=== PATIENT | male | born 1985 | race Caucasian/White ===

== ENCOUNTER 2016-03-25 02:40 | Inpatient (IN) | payer BC ==
[2016-03-25] VITALS (7 sets, daily range): BP systolic 135–176; BP diastolic 81–88
[~2016-03-25] VITALS: Ht 190.5 cm; Wt 146.0 kg
[2016-03-25 03:19] LABS: BASO % 0.4 % (0.0-1.0); EOS # 0.2 K/mm3 (0.0-0.50); LARGE UNSTAINED CELL # 0.1 K/mm3 (0.0-0.4); LARGE UNSTAINED CELL % 0.8 % (0.0-4.0); LYMPH # 2.1 K/mm3 (1.5-4.5); LYMPH % 16.4 % (24.0-44.0); MEAN CORPUSCULAR HEMOGLOBIN 30.7 pg (27.0-33.0); MEAN CORPUSCULAR HGB CONC 35.1 g/dl (32.0-36.5); MEAN CORPUSCULAR VOLUME 87.3 fl (80.0-96.0); MONO # 0.4 K/mm3 (0.0-0.8); MONO % 3.4 % (0.0-5.0); NEUTROPHILS # 9.2 K/mm3 (1.8-7.7); PLATELET COUNT, AUTOMATED 386 k/mm3 (150-450); RED CELL DISTRIBUTION WIDTH 12.6 % (11.5-14.5)
[2016-03-25 03:47] LABS: ALBUMIN 4.5 GM/DL (3.2-5.2); ALBUMIN/GLOBULIN RATIO 1.25 (1.00-1.93); ALKALINE PHOSPHATASE 55 U/L (45-117); ALT/SGPT 60 U/L (12-78); AMYLASE 52 U/L (25-115); ANION GAP 11 MEQ/L (8-16); AST/SGOT 26 U/L (15-37); BILIRUBIN,DIRECT 0.1 MG/DL (0.0-0.2); BILIRUBIN,TOTAL 0.4 MG/DL (0.2-1.0); BLOOD UREA NITROGEN 18 MG/DL (7-18); CALCIUM LEVEL 9.3 MG/DL (8.5-10.1); CARBON DIOXIDE LEVEL 24 MEQ/L (21-32); CHLORIDE LEVEL 103 MEQ/L (98-107); CREATININE FOR GFR 1.17 MG/DL (0.70-1.30); GLOMERULAR FILTRATION RATE > 60.0 (>60); GLUCOSE, FASTING 133 MG/DL (70-105); POTASSIUM SERUM 3.7 MEQ/L (3.5-5.1); SODIUM LEVEL 138 MEQ/L (136-145); TOTAL PROTEIN 8.1 GM/DL (6.4-8.2)
[2016-03-25] MEDS ORDERED: ISOVUE-370 76% 100ML VIAL (Q9967) As Ordered ONE (04:51)
--- NOTE | 2016-03-25 05:00 | REPUSA ---
CLINICAL HISTORY: Elevated liver enzymes. TECHNIQUE: Realtime sonographic images were obtained in multiple projections. COMMENTS: Increased hepatic echogenicity suggestive of fatty infiltration. Distended gallbladder. Stones and sludge. One of the stones is impacted in the neck of the gallbladder. Normal gallbladder wall thickness measuring 2.1 mm. Positive sonographic Perry. Nondilated common bile duct measuring 5.2 mm. Unremarkable right kidney. IMPRESSION: Fatty liver. Cholelithiasis. One of the stones is impacted at the neck of the distended gallbladder. Posterior sonographic Perry. Suspected developing changes of acute cholecystitis. This needs a surgical consultation. Thank you for your kind referral of this patient.
--- NOTE | 2016-03-25 06:00 | REPUSA ---
CLINICAL HISTORY: Abdominal pain. TECHNIQUE: Multiple axial, sagittal and coronal CT images were obtained through the abdomen and pelvi s after administration of intravenous contrast material. COMMENTS: The liver is mildly enlarged with decreased attenuation without mass or defect. There is no intra or extrahepatic biliary ductal dilatation. The spleen is normal. The gallbladder is mildly thickened. Th ere is mild pericholecystic fat stranding and thickening. The pancreas is of normal contour and atten uation characteristics. There is no evidence of adrenal mass. Both kidneys demonstrate prompt and equal nephrograms. The kidneys are normal in size, shape and conf iguration. There is no evidence of renal or ureteral mass. No renal or ureteral calculi are identifie d. There is no hydroureter or hydronephrosis. No evidence for appendicitis. There is no bowel wall thickening. No evidence for small or large lilian l obstruction. There is no evidence of abdominal ascites or lymphadenopathy. There is no evidence of intrinsic or extrinsic bladder mass. There is no pelvic ascites or lymphadeno mazin. Images of the lung bases show no evidence of pleural or parenchymal mass. There are no pleural effusi ons. The bony structures are free of lytic or blastic lesions. Multilevel degenerative changes are seen in volving the thoracolumbar spine. Scattered calcifications are seen involving the aorta and major bran ches compatible with atherosclerosis. IMPRESSION: Suspected mild changes of acute cholecystitis. This needs a surgical consultation. Mild hepatomegaly with fatty liver infiltration. Thank you for your kind referral of this patient.
[2016-03-25] MEDS ORDERED: ACETAMINOPHEN TAB 650MG DOSE (2X325MG) PO PRN (08:00)
[2016-03-25] MEDS ORDERED: KETOROLAC 30 MG/ML VIAL (J1885) IV PRN (08:00)
[2016-03-25] MEDS ORDERED: NORCO, ANEXSIA 5/325MG TABLET (HYDROcodone/ACETAMINOPHEN) PO PRN (08:00)
[2016-03-25] MEDS ORDERED: MORPHINE 2 MG/ML 1ML SYRINGE IV PRN (08:00)
--- NOTE | 2016-03-25 08:20 | EDDOCDS ---
Physician Documentation [facility] Name: Magdi Perez Age: 30 yrs Sex: Male : 1985 Arrival Date: 03/25/2016 Time: 02:40 Bed 5 Private MD: Disposition: 03/25/16 06:14 Hospitalization ordered by Aleksandr Hanson for Inpatient Admission. Preliminary diagnosis is Acute cholecystitis. - Bed requested for 4 [place]. - Status is Inpatient Admission. jmk - Condition is Stable. - Problem is new. - Symptoms are unchanged. Historical: - Allergies: No known drug Allergies; - Home Meds: 1. none - PMHx: none; - PSHx: Appendectomy; - Social history: Smoking status: Patient states was never smoker of tobacco. No barriers to communication noted, The patient speaks fluent Afghan, Speaks appropriately for age. - Family history: Not pertinent. - : The pt / caregiver states he / she is not on anticoagulants. Home medication list is obtained from the patient. - Exposure Risk Screening:: None identified. Vital Signs: 03/25 02:45 BP 160 / 98; Pulse 59; Resp 18; Temp 96.2(O); Pulse Ox 97% on R/A; Weight 145.15 kg / kmg1 320 lbs (M); Height 6 ft. 3 in. (190.50 cm) (R); Pain 10/10; 06:35 BP 120 / 66; Pulse 81; Resp 18; Temp 97.7(TE); Pulse Ox 98% on R/A; Pain 5/10; wisam 08:18 BP 130 / 67; Pulse 60; Resp 16; Temp 98.1; jmk 02:45 Body Mass Index 40.00 (145.15 kg, 190.50 cm) kmg1 MDM: 03:04 Undress patient appropriately for examination ordered. kmg1 03:04 IV Saline Lock ordered. kmg1 03:05 Amylase Ordered. EDMS 03:05 Basic Metabolic Profile Ordered. EDMS 03:05 CBC with Diff Ordered. EDMS 03:05 Lipase Ordered. EDMS 03:05 Liver Profile Ordered. EDMS 03:05 NOTHING BY MOUTH+DIET ordered. EDMS 03:58 Financial registration complete. [facility] 04:02 Basic Metabolic Profile Reviewed. cs11 04:02 CBC with Diff Reviewed. cs11 04:02 Amylase Reviewed. cs11 04:02 Lipase Reviewed. cs11 04:02 Liver Profile Reviewed. cs11 04:06 Ultrasound Abd Limited Ordered. EDMS 04:08 [facility] Payment Agreement was scanned into [employer] and attached to record. [facility] 04:38 CT ABD & PELVIS: IV Contrast Only Ordered. EDMS 06:04 Ultrasound Abd Limited Reviewed. cs11 06:08 BED REQUEST+ADM ordered. EDMS 06:17 Admission Orders was scanned into [employer] and attached to record. ml3 08:01 Admission / Observation Status ordered. EDMS 08:01 NPO DIET ordered. EDMS 08:17 LR Solution 1000 ml IV at 125 mL/hr continuous ordered. jmk Administered Medications: 08:17 Drug: LR 1000 ml [lactated ringers intravenous solution] Route: IV; Rate: 125 mL/hr; elizabethk Site: left antecubital; Signatures: Dispatcher [employer] EDID Cristine Hagan, RN RN kmg1 Ciro BraggRN RN elizabethk Tameka Mathis, Tank Crewmember Unit ml3 Bud Piña, DO DO [facility] Kelly Rush [facility] Karla Williamson, RN RN lmg The chart was reviewed and I authenticate all verbal orders and agree with the evaluation and treatment provided.Attachments: 04:08 [facility] Payment Agreement [facility] 06:17 Admission Orders ml3 MTDD
--- NOTE | 2016-03-25 08:20 | EDDOCDS ---
Nurse's Notes [facility] Name: Magdi Perez Age: 30 yrs Sex: Male : 1985 Arrival Date: 03/25/2016 Time: 02:40 Bed 5 Private MD: Diagnosis: Acute cholecystitis Presentation: 03/25 02:42 Presenting complaint: Patient states: Severe right upper abdominal pain began at 2330. kmg1 Vomiting. Risk factors: the patient reports not having a history of previous torsion. Adult Sepsis Screening:. Suicide/Homicide risk assessment- the patient denies having any suicidal and/or homicidal ideations and does not present with any other emotional, behavioral or mental health complaints. Status: Patient is not a vending machine servicer or dependent. Transition of care: patient was not received from another setting of care. 02:42 Acuity: LEX Level 3 kmg1 02:42 Method Of Arrival: Walkin/Carried/Asstd kmg1 05:03 Adult Sepsis Screening: The patient does not have new or worsening altered mentation. js15 Patient's respiratory rate is less than 22. Systolic blood pressure is greater than 100. Patient has a qSOFA score of 0- Negative Sepsis Screen. Triage Assessment: 02:45 General: Appears uncomfortable, Behavior is appropriate for age, cooperative, restless. kmg1 Pain: Location: right upper quadrant Pain currently is 10 out of 10 on a pain scale. Quality of pain is described as aching, sharp, Pain began suddenly 3 hours ago. HIV screening NA for this visit Offered previously. GI: Reports upper abd pain, nausea, vomiting. Historical: - Allergies: No known drug Allergies; - Home Meds: 1. none - PMHx: none; - PSHx: Appendectomy; - Social history: Smoking status: Patient states was never smoker of tobacco. No barriers to communication noted, The patient speaks fluent Italian, Speaks appropriately for age. - Family history: Not pertinent. - : The pt / caregiver states he / she is not on anticoagulants. Home medication list is obtained from the patient. - Exposure Risk Screening:: None identified. Screenin:04 Screening information is obtained from the patient. Fall risk: No risks identified. js15 Assistance ADL's: requires no assistance with activities of daily living. Abuse/DV Screen: The patient / caregiver reports he/she is: not in a situation that causes fear, pain or injury. Nutritional screening: No deficits noted. Advance Directives: There is no active DNR order. home support is adequate. Assessment: 04:00 General: Appears in no apparent distress, uncomfortable, Behavior is appropriate for js15 age, cooperative. Pain: Location: abdomen and right upper quadrant Pain currently is 7 out of 10 on a pain scale. Quality of pain is described as aching. Neurological: Level of Consciousness is awake, alert, obeys commands, Oriented to person, place, time. Respiratory: Airway is patent Respiratory effort is even, unlabored, Respiratory pattern is regular, symmetrical, Breath sounds are clear bilaterally. GI: Abdomen is non- distended Bowel sounds present X 4 quads. Abd is soft and non tender X 4 quads. Derm: Skin is pink, warm & dry. 05:04 Reassessment: Patient appears in no apparent distress at this time. Pt back from CT; js15 respirations even and unlabored; skin pink, warm, dry; resting comfortably on stretcher with significant other at bedside and lights dimmed. 06:06 Reassessment: Patient appears in no apparent distress at this time. Pt resting on js15 stretcher with eyes closed, lights off, appears to be sleeping; respirations even and unlabored; skin pink, warm, dry. 06:32 General: Appears in no apparent distress, resting on stretcher with eyes closed. js15 Respiratory: Airway is patent Respiratory effort is even, unlabored, Respiratory pattern is regular, symmetrical. Derm: Skin is pink, warm & dry. 08:12 General: Appears denies pain. Obese abdomen that is non distended with bowel sounds jmk present x 4. pain not reproduced with palpation of abdomen, but indicates discomfort to right upper abdomen when present. SL intact. moist pin k oral mucosa. Vital Signs: 02:45 BP 160 / 98; Pulse 59; Resp 18; Temp 96.2(O); Pulse Ox 97% on R/A; Weight 145.15 kg kmg1 (M); Height 6 ft. 3 in. (190.50 cm) (R); Pain 10/10; 06:35 BP 120 / 66; Pulse 81; Resp 18; Temp 97.7(TE); Pulse Ox 98% on R/A; Pain 5/10; wisam 08:18 BP 130 / 67; Pulse 60; Resp 16; Temp 98.1; jmk 02:45 Body Mass Index 40.00 (145.15 kg, 190.50 cm) [facility] Vitals: 02:45 Log In Time: March 25, 2016 at 02:40. [facility] ED Course: 02:41 Patient visited by Santi Aburto Reg. pm4 02:41 Patient moved to Waiting pm4 02:44 Triage Initiated kmg1 03:05 Patient moved to 5 ml3 03:10 The patient / caregiver is instructed regarding the plan of care and ED course. kmg1 03:10 Amylase Sent. kmg1 03:10 Basic Metabolic Profile Sent. kmg1 03:10 CBC with Diff Sent. kmg1 03:10 Lipase Sent. kmg1 03:10 Liver Profile Sent. kmg1 03:10 Inserted saline lock: 20 gauge in left antecubital area. Labs drawn. (by ED staff). kmg1 Sent per order to lab. 03:46 Bud Piña DO is Attending Physician. cs11 03:46 Patient visited by Bud Piña DO. cs11 04:08 Patient name changed from Magdi\S\J\S\Cavellier\S\ to Magdi\S\Jerry\S\Cavellier. EDMS 04:08 [facility] Payment Agreement was scanned into [employer] and attached to record. [facility] 04:48 Patient visited by Natividad Armando RN. js15 05:03 Ultrasound Abd Limited Returned. EDMS 06:05 Patient visited by Natividad Armando RN. js15 06:09 CT ABD & PELVIS: IV Contrast Only Returned. EDMS 06:13 Aleksandr Hanson DO is Hospitalizing Provider. cs11 06:17 Admission Orders was scanned into [employer] and attached to record. ml3 06:35 Patient visited by Angie Vela PCA. wisam 07:59 Patient visited by Angel Mariee. jml1 07:59 Verbal reassurance given. jml1 Administered Medications: 08:17 Drug: LR 1000 ml [lactated ringers intravenous solution] Route: IV; Rate: 125 mL/hr; elizabethk Site: left antecubital; Order Results: Lab Order: Amylase; SPEC'M 03/25/16 03:06 Test: AMYLASE; Value: 52; Range: 25-115; Units: U/L; Status: F Lab Order: Basic Metabolic Profile; SPEC03/25/16 03:06 Test: GLUCOSE, FASTING; Value: 133; Range: 70-105; Abnormal: Above high normal; Units: MG/DL; Status: F Test: BLOOD UREA NITROGEN; Value: 18; Range: 7-18; Units: MG/DL; Status: F Test: CREATININE FOR GFR; Value: 1.17; Range: 0.70-1.30; Units: MG/DL; Status: F Test: GLOMERULAR FILTRATION RATE; Value: > 60.0; Range: >60; Status: F Test: SODIUM LEVEL; Value: 138; Range: 136-145; Units: MEQ/L; Status: F Test: POTASSIUM SERUM; Value: 3.7; Range: 3.5-5.1; Units: MEQ/L; Status: F Test: CHLORIDE LEVEL; Value: 103; Range: 98-107; Units: MEQ/L; Status: F Test: CARBON DIOXIDE LEVEL; Value: 24; Range: 21-32; Units: MEQ/L; Status: F Test: ANION GAP; Value: 11; Range: 8-16; Units: MEQ/L; Status: F Test: CALCIUM LEVEL; Value: 9.3; Range: 8.5-10.1; Units: MG/DL; Status: F Test Note: ; Units are mL/min/1.73 m2 Chronic Kidney Disease Staging per NKF: Stage I & II GFR >=60 Normal to Mildly Decreased Stage III GFR 30-59 Moderately Decreased Stage IV GFR 15-29 Severely Decreased Stage V GFR <15 Very Little GFR Left ESRD GFR <15 on [facility] Lab Order: CBC with Diff; SPEC03/25/16 03:06 Test: WHITE BLOOD COUNT; Value: 12.0; Range: 4.0-10.0; Abnormal: Above high normal; Units: K/mm3; Status: F Test: RED BLOOD COUNT; Value: 5.15; Range: 4.30-6.10; Units: M/mm3; Status: F Test: HEMOGLOBIN; Value: 15.8; Range: 14.0-18.0; Units: g/dl; Status: F Test: HEMATOCRIT; Value: 44.9; Range: 42.0-52.0; Units: %; Status: F Test: MEAN CORPUSCULAR VOLUME; Value: 87.3; Range: 80.0-96.0; Units: fl; Status: F Test: MEAN CORPUSCULAR HEMOGLOBIN; Value: 30.7; Range: 27.0-33.0; Units: pg; Status: F Test: MEAN CORPUSCULAR HGB CONC; Value: 35.1; Range: 32.0-36.5; Units: g/dl; Status: F Test: RED CELL DISTRIBUTION WIDTH; Value: 12.6; Range: 11.5-14.5; Units: %; Status: F Test: PLATELET COUNT, AUTOMATED; Value: 386; Range: 150-450; Units: k/mm3; Status: F Test: NEUTROPHILS %; Value: 77.0; Range: 36.0-66.0; Abnormal: Above high normal; Units: %; Status: F Test: LYMPH %; Value: 16.4; Range: 24.0-44.0; Abnormal: Below low normal; Units: %; Status: F Test: MONO %; Value: 3.4; Range: 0.0-5.0; Units: %; Status: F Test: EOS %; Value: 2.0; Range: 0.0-3.0; Units: %; Status: F Test: BASO %; Value: 0.4; Range: 0.0-1.0; Units: %; Status: F Test: LARGE UNSTAINED CELL %; Value: 0.8; Range: 0.0-4.0; Units: %; Status: F Test: NEUTROPHILS #; Value: 9.2; Range: 1.8-7.7; Abnormal: Above high normal; Units: K/mm3; Status: F Test: LYMPH #; Value: 2.1; Range: 1.5-4.5; Units: K/mm3; Status: F Test: MONO #; Value: 0.4; Range: 0.0-0.8; Units: K/mm3; Status: F Test: EOS #; Value: 0.2; Range: 0.0-0.50; Units: K/mm3; Status: F Test: BASO #; Value: 0.0; Range: 0.0-0.2; Units: K/mm3; Status: F Test: LARGE UNSTAINED CELL #; Value: 0.1; Range: 0.0-0.4; Units: K/mm3; Status: F Lab Order: Lipase; SPEC'M 03/25/16 03:06 Test: LIPASE; Value: 355; Range: 73-393; Units: U/L; Status: F Lab Order: Liver Profile; SPEC'M 03/25/16 03:06 Test: AST/SGOT; Value: 26; Range: 15-37; Units: U/L; Status: F Test: ALT/SGPT; Value: 60; Range: 12-78; Units: U/L; Status: F Test: ALKALINE PHOSPHATASE; Value: 55; Range: 45-117; Units: U/L; Status: F Test: BILIRUBIN,TOTAL; Value: 0.4; Range: 0.2-1.0; Units: MG/DL; Status: F Test: BILIRUBIN,DIRECT; Value: 0.1; Range: 0.0-0.2; Units: MG/DL; Status: F Test: TOTAL PROTEIN; Value: 8.1; Range: 6.4-8.2; Units: GM/DL; Status: F Test: ALBUMIN; Value: 4.5; Range: 3.2-5.2; Units: GM/DL; Status: F Test: ALBUMIN/GLOBULIN RATIO; Value: 1.25; Range: 1.00-1.93; Status: F Radiology Order: Ultrasound Abd Limited Test: Ultrasound Abd Limited REASON FOR EXAMINATION: Biliary Colic; ; CLINICAL HISTORY: Elevated liver enzymes.; TECHNIQUE: Realtime sonographic images were obtained in multiple projections.; COMMENTS:; Increased hepatic echogenicity suggestive of fatty infiltration.; Distended gallbladder.; Stones and sludge. One of the stones is impacted in the neck of the gallbladder.; Normal gallbladder wall thickness measuring 2.1 mm.; Positive sonographic Perry.; Nondilated common bile duct measuring 5.2 mm.; Unremarkable right kidney.; IMPRESSION:; Fatty liver.; Cholelithiasis.; One of the stones is impacted at the neck of the distended gallbladder.; Posterior sonographic Perry.; Suspected developing changes of acute cholecystitis. This needs a surgical consultation.; Thank you for your kind referral of this patient.; ; Radiology Order: CT ABD & PELVIS: IV Contrast Only Test: CT ABD & PELVIS: IV Contrast Only REASON FOR EXAMINATION: Biliary Colic; ; CLINICAL HISTORY: Abdominal pain.; TECHNIQUE: Multiple axial, sagittal and coronal CT images were obtained through the abdomen and pelvi; s after administration of intravenous contrast material.; COMMENTS:; The liver is mildly enlarged with decreased attenuation without mass or defect. There is no intra or; extrahepatic biliary ductal dilatation. The spleen is normal. The gallbladder is mildly thickened. Th; ere is mild pericholecystic fat stranding and thickening. The pancreas is of normal contour and atten; uation characteristics. There is no evidence of adrenal mass.; Both kidneys demonstrate prompt and equal nephrograms. The kidneys are normal in size, shape and conf; iguration. There is no evidence of renal or ureteral mass. No renal or ureteral calculi are identifie; d. There is no hydroureter or hydronephrosis.; No evidence for appendicitis. There is no bowel wall thickening. No evidence for small or large lilian; l obstruction. There is no evidence of abdominal ascites or lymphadenopathy.; There is no evidence of intrinsic or extrinsic bladder mass. There is no pelvic ascites or lymphadeno; mazin.; Images of the lung bases show no evidence of pleural or parenchymal mass. There are no pleural effusi; ons.; The bony structures are free of lytic or blastic lesions. Multilevel degenerative changes are seen in; volving the thoracolumbar spine. Scattered calcifications are seen involving the aorta and major bran; ches compatible with atherosclerosis.; IMPRESSION:; Suspected mild changes of acute cholecystitis. This needs a surgical consultation.; Mild hepatomegaly with fatty liver infiltration.; Thank you for your kind referral of this patient.; ; Outcome: 06:14 Decision to Hospitalize by Provider. cs11 08:18 Discharge Assessment: Patient awake, alert and oriented x 3. No cognitive and/or jmk functional deficits noted. Patient verbalized understanding of disposition instructions. patient administered narcotics - no. The following High Risk Discharge criteria are identified: None. Admitted to Med/Surg accompanied by tech, via stretcher, with chart. Condition: good. CT Study completed. Ultrasound Study completed. Property :Personal belongings accompany Pt. 08:19 Patient left the ED. nate Signatures: Dispatcher [employer] EDMS Cristine Hagan, RN RN kmg1 Ciro Bragg,RN RN elizabethk Del, Tameka, Slot Floor Supervisor Unit ml3 Angie Vela, SILVERING DEPARTMENT SUPERVISOR SILVERING DEPARTMENT SUPERVISOR wisam Angel Mariee jml1 Bud Piña, DO DO cs11 Kelly Rush Julia,RN RN js15 Santi Aburto, Reg Reg pm4 MTDD
[2016-03-25] MEDS: LR 1,000 ML IV SCH ×3 (10:00→21:55)
[2016-03-25] MEDS: metroNIDAZOLE 500 MG in APPROPRIATE DILUENT 1 EA IV SCH ×3 (10:00→21:52)
[2016-03-25] MEDS: CIPROFLOXACIN 400 MG in APPROPRIATE DILUENT 1 EA IV SCH ×2 (10:01→20:40)
[2016-03-25] MEDS: SENOKOT S TAB PO SCH ×2 (10:01→20:41)
[2016-03-25] MEDS ORDERED: BUPIVACAINE/EPIN 0.25% 30 ML VIAL As Ordered ONE (10:42)
[2016-03-25] MEDS ORDERED: ROCURONIUM BROMIDE 50 MG/5 ML VIAL As Ordered ONE ×2 (11:19→11:33)
[2016-03-25] MEDS ORDERED: fentaNYL 250 MCG/5 ML INJECTION (J3010) As Ordered ONE (11:19)
[2016-03-25] MEDS ORDERED: MIDAZOLAM INJ 2 MG/2 ML VIAL (J2250) As Ordered ONE (11:19)
[2016-03-25] MEDS ORDERED: LIDOCAINE 2% INJ 100 MG/5 ML SDV (FOR ANES.) As Ordered ONE (11:19)
[2016-03-25] MEDS ORDERED: PROPOFOL 200 MG/20 ML VIAL As Ordered ONE (11:19)
[2016-03-25] MEDS ORDERED: KETOROLAC 60 MG/2 ML VIAL (J1885) As Ordered ONE (11:26)
[2016-03-25] MEDS ORDERED: ONDANSETRON 4MG/2ML VIAL (J2405) As Ordered ONE (11:26)
[2016-03-25] MEDS ORDERED: NEOSTIGMINE 1MG/ML 5 ML SYRINGE (J2710) As Ordered ONE (11:26)
[2016-03-25] MEDS ORDERED: GLYCOPYRROLATE INJ 0.2 MG/ML 2 ML VIAL As Ordered ONE ×2 (11:26→12:08)
[2016-03-25] MEDS ORDERED: BUPIVACAINE/EPIN 0.25% 30 ML VIAL XX ONE (11:37)
[2016-03-25] MEDS ORDERED: fentaNYL 100 MCG/2 ML INJECTION (J3010) As Ordered ONE (11:48)
[2016-03-25] MEDS ORDERED: HYDROmorphone HCL 2 MG/ML 1ML VIAL (J1170) As Ordered ONE (12:22)
[2016-03-25] MEDS ORDERED: NORCOTAB PO (12:34)
[2016-03-25] MEDS ORDERED: SENN1TAB2 PO (12:34)
[2016-03-25] MEDS ORDERED: fentaNYL 100 MCG/2 ML INJECTION (J3010) IV PRN (12:45)
[2016-03-25] MEDS ORDERED: LR 1,000 ML IV SCH (12:45)
[2016-03-25] MEDS ORDERED: HYDROmorphone HCL 1 MG/ML SYRINGE (J1170) IV PRN (12:45)
[2016-03-25] MEDS ORDERED: PERCOCET 5MG/325MG TAB PO PRN (12:45)
[2016-03-25] MEDS ORDERED: ONDANSETRON 4MG/2ML VIAL (J2405) IV PRN (12:45)
--- NOTE | 2016-03-25 13:07 | HPE ---
DATE OF ADMISSION: 03/25/2016 CHIEF COMPLAINT: Right upper quadrant pain. HISTORY OF PRESENT ILLNESS: The patient 30-year-old male who has had intermittent right upper quadrant abdominal pain for over a year now. He was originally diagnosed with stones about 14 to 15 months ago. He never saw a surgeon to have it evaluated. Anywhere from a couple of times a week to once every couple months he has been having this right upper quadrant pain. He was started on Bentyl outpatient without any improvement. In the past few days, it has been getting more persistent, more pain. He came into the emergency room last evening and was diagnosed with acute cholecystitis with a thickened gallbladder wall and pericholecystic fluid, as well as an elevated white count. He denies any nausea or vomiting. No fever sweats or chills. No problems with diarrhea or constipation but this right upper quadrant pain has been fairly persistent. PAST MEDICAL HISTORY: Negative. PAST SURGICAL HISTORY: Appendix. ALLERGIES: None. HOME MEDICATIONS: None. SOCIAL HISTORY: Denies drug, alcohol, tobacco abuse. FAMILY HISTORY: Noncontributory. REVIEW OF SYSTEMS: Pertinent positives and negatives as stated in the history of present illness. PHYSICAL EXAMINATION GENERAL: Alert and oriented times three times three. No acute distress. VITAL SIGNS: Stable, afebrile. HEENT: Pupils equal round reactive to light and accommodation. HEART: S1, S2. Regular rate and rhythm. LUNGS: Clear to auscultation bilaterally. ABDOMEN: Soft. Tender to palpation in the right upper quadrant. No rebounding, guarding or rigidity. Bowel sounds positive. EXTREMITIES: No clubbing, cyanosis or edema. LABORATORY DATA: White count 12, hemoglobin 15.8, total bilirubin 0.4, direct bilirubin 0.1, AST 26, ALT 60, alkaline phosphatase 55, lipase 355. IMAGING STUDIES: Ultrasound of the abdomen shows cholelithiasis with a stone impacted in neck of the distended gallbladder. Sonographic Perry sign is positive. Suspected developing changes of acute cholecystitis. ASSESSMENT AND PLAN: The patient is a 30-year-old male with acute cholecystitis. RECOMMENDATIONS: Proceed with laparoscopic, possible open cholecystectomy. The risks and benefits of the procedure, not limited to, but including bleeding, infection, hernia formation, damage to surrounding structures, need further surgery were discussed in detail with the patient. Informed consent was obtained and procedure is planned for this morning. After surgery, as long as he is feeling okay, the plan is to discharge home today. Follow up me in the office in 2 weeks.
[2016-03-25] MEDS: NORCO, ANEXSIA 5/325MG TABLET (HYDROcodone/ACETAMINOPHEN) PO PRN ×2 (15:45→21:55)
--- NOTE | 2016-03-25 16:07 | RO ---
DATE OF PROCEDURE: 03/25/2016 PREOPERATIVE DIAGNOSIS: Acute cholecystitis. PREOPERATIVE DIAGNOSIS: Acute cholecystitis. OPERATIVE PROCEDURE: Laparoscopic cholecystectomy. SURGEON: Aleksandr Hanson DO ELIGIBILITY SUPERVISOR: None. ANESTHESIA: General. ESTIMATED BLOOD LOSS: 10 mL COMPLICATIONS: None. INDICATIONS FOR PROCEDURE: The patient is a 30-year-old male presents with right upper quadrant abdominal pain. Recommendation is to proceed with laparoscopic possible open cholecystectomy due to findings of acute cholecystitis on both CT and ultrasound. Risks and benefits of the procedure discussed in detail with the patient not limited, but including bleeding, infection, hernia formation, damage surrounding structures, need for further surgery. Informed was obtained procedure was planned. DESCRIPTION OF PROCEDURE: The patient was brought back to the operating room 8. After sufficient sedation, the abdomen was sterilely prepped and draped. Next a time out was done to confirm proper patient and proper procedure. Following that, a stab incision was made in left lower quadrant. Veress needle was inserted and the abdomen was insufflated to 50 mmHg. Next, a 5 mm supraumbilical incision was made. The 5 mm Optiview port was then used to gain access to the abdomen. Once abdomen was entered, the Veress needle site was examined. There were no signs of injury. Veress needle was then removed. A 10 mm port was then placed subxiphoid, two 5 mm ports in the right upper quadrant. The omentum was all adhered to a very thickened and inflamed gallbladder. The fundus of the gallbladder was carefully elevated while the omentum was carefully dissected free. Once all this was done, the gallbladder was carefully held up towards the right shoulder. The cystic duct and cystic artery were carefully dissected free using a combination of blunt and sharp dissection. Once they are both clearly identified, they were both doubly clipped and cut due to the large size of the cystic duct. The cystic duct was clipped and then once the duct was cut, PDS Endoloop was placed around the proximal end to assist with ligation. Once this was complete, the gallbladder was removed from the gallbladder fossa using electrocautery. It was then brought out through the 10 mm port site in an Endo Catch bag. The right upper quadrant was irrigated to check for any signs of bleeding. Bleeding was controlled with electrocautery along the liver bed. Once this was completed the abdomen was desufflated. Skin incisions were closed with #4-0 Vicryl subcuticular sutures. The abdomen was cleaned and dried. Steri-Strips, 4x4 and tape were applied thus ending procedure.
[2016-03-25] MEDS: ONDANSETRON 4MG/2ML VIAL (J2405) IV PRN (22:28)
[2016-03-26] VITALS: BP 134/85
[2016-03-26 04:00] VITALS: BP 144/87
[2016-03-26] MEDS: metroNIDAZOLE 500 MG in APPROPRIATE DILUENT 1 EA IV SCH ×4 (04:04→22:16)
[2016-03-26] MEDS: LR 1,000 ML IV SCH ×3 (04:05→22:16)
[2016-03-26] MEDS: NORCO, ANEXSIA 5/325MG TABLET (HYDROcodone/ACETAMINOPHEN) PO PRN ×2 (04:07→20:41)
[2016-03-26 07:16] LABS: MEAN CORPUSCULAR HEMOGLOBIN 30.8 pg (27.0-33.0); MEAN CORPUSCULAR HGB CONC 34.3 g/dl (32.0-36.5); MEAN CORPUSCULAR VOLUME 89.8 fl (80.0-96.0); RED CELL DISTRIBUTION WIDTH 12.6 % (11.5-14.5); WHITE BLOOD COUNT 5.6 K/mm3 (4.0-10.0)
[2016-03-26 07:39] LABS: ALBUMIN 3.5 GM/DL (3.2-5.2); ALBUMIN/GLOBULIN RATIO 1.06 (1.00-1.93); ALKALINE PHOSPHATASE 121 U/L (45-117); ALT/SGPT 588 U/L (12-78); ANION GAP 7 MEQ/L (8-16); AST/SGOT 419 U/L (15-37); BILIRUBIN,TOTAL 2.7 MG/DL (0.2-1.0); BLOOD UREA NITROGEN 14 MG/DL (7-18); CALCIUM LEVEL 8.1 MG/DL (8.5-10.1); CARBON DIOXIDE LEVEL 30 MEQ/L (21-32); CHLORIDE LEVEL 103 MEQ/L (98-107); GLOMERULAR FILTRATION RATE > 60.0 (>60); GLUCOSE, FASTING 109 MG/DL (70-105); POTASSIUM SERUM 3.8 MEQ/L (3.5-5.1); SODIUM LEVEL 140 MEQ/L (136-145); TOTAL PROTEIN 6.8 GM/DL (6.4-8.2)
[2016-03-26] MEDS: SENOKOT S TAB PO SCH ×2 (08:59→20:40)
[2016-03-26] MEDS: CIPROFLOXACIN 400 MG in APPROPRIATE DILUENT 1 EA IV SCH ×2 (08:59→20:40)
[2016-03-26 10:00] VITALS: BP 140/80
[2016-03-26] MEDS: ONDANSETRON 4MG/2ML VIAL (J2405) IV PRN (11:12)
[2016-03-26 12:50] VITALS: BP 142/74
--- NOTE | 2016-03-26 13:15 | REP ---
HEPATOBILIARY SCAN: HISTORY: Hyperbilirubinemia. Patient is 1 day post cholecystectomy. TECHNIQUE: 6.6 mCi technetium 99m mebrofenin is injected, and standard sequential 1-hour images are acquired SCINTIGRAPHIC FINDINGS: The initial hepatocellular parenchymal uptake phase is normal and homogeneous. Intrahepatic bile ducts are visualized at 10 minutes, and extrahepatic bile duct is labeled at 15 minutes. The small intestine is first labeled at 20 minutes. There is less than the usual degree of washout into the small intestine on subsequent scans. This may relate to cholestasis or hepatocellular dysfunction. There is, however, no evidence of biliary obstruction. No evidence of bile leak. IMPRESSION: Slightly delayed hepatocellular washout. No evidence of bile leak or biliary obstruction. Post cholecystectomy. Signed by Edgar Washington MD 03/26/2016 02:34 P
[2016-03-26 16:00] VITALS: BP 146/86
[2016-03-26 20:00] VITALS: BP 140/81
[2016-03-27] VITALS: BP 120/72
[2016-03-27] MEDS: metroNIDAZOLE 500 MG in APPROPRIATE DILUENT 1 EA IV SCH (03:49)
[2016-03-27 04:00] VITALS: BP 125/75
[2016-03-27 07:07] LABS: MEAN CORPUSCULAR HEMOGLOBIN 30.8 pg (27.0-33.0); MEAN CORPUSCULAR HGB CONC 34.3 g/dl (32.0-36.5); RED CELL DISTRIBUTION WIDTH 12.1 % (11.5-14.5); WHITE BLOOD COUNT 7.6 K/mm3 (4.0-10.0)
[2016-03-27 07:23] LABS: ALBUMIN 3.5 GM/DL (3.2-5.2); ALBUMIN/GLOBULIN RATIO 1.06 (1.00-1.93); ALKALINE PHOSPHATASE 124 U/L (45-117); ALT/SGPT 423 U/L (12-78); ANION GAP 7 MEQ/L (8-16); AST/SGOT 142 U/L (15-37); BILIRUBIN,TOTAL 0.7 MG/DL (0.2-1.0); BLOOD UREA NITROGEN 11 MG/DL (7-18); CALCIUM LEVEL 8.5 MG/DL (8.5-10.1); CARBON DIOXIDE LEVEL 29 MEQ/L (21-32); CHLORIDE LEVEL 104 MEQ/L (98-107); GLOMERULAR FILTRATION RATE > 60.0 (>60); GLUCOSE, FASTING 95 MG/DL (70-105); MAGNESIUM LEVEL 2.1 MG/DL (1.8-2.4); POTASSIUM SERUM 4.1 MEQ/L (3.5-5.1); SODIUM LEVEL 140 MEQ/L (136-145); TOTAL PROTEIN 6.8 GM/DL (6.4-8.2)
[2016-03-27 08:00] VITALS: BP 114/73
[2016-03-27] MEDS: SENOKOT S TAB PO SCH (08:41)
--- NOTE | 2016-03-27 09:20 | EDDOCDS ---
Physician Documentation [facility] Name: Magdi Perez Age: 30 yrs Sex: Male : 1985 Arrival Date: 03/25/2016 Time: 02:40 Bed 5 Private MD: Disposition: 03/25/16 06:14 Hospitalization ordered by Aleksandr Hanson for Inpatient Admission. Preliminary diagnosis is Acute cholecystitis. - Bed requested for 4 [place]. - Status is Inpatient Admission. jmk - Condition is Stable. - Problem is new. - Symptoms are unchanged. Historical: - Allergies: No known drug Allergies; - Home Meds: 1. none - PMHx: none; - PSHx: Appendectomy; - Social history: Smoking status: Patient states was never smoker of tobacco. No barriers to communication noted, The patient speaks fluent Taiwanese, Speaks appropriately for age. - Family history: Not pertinent. - : The pt / caregiver states he / she is not on anticoagulants. Home medication list is obtained from the patient. - Exposure Risk Screening:: None identified. Vital Signs: 03/25 02:45 BP 160 / 98; Pulse 59; Resp 18; Temp 96.2(O); Pulse Ox 97% on R/A; Weight 145.15 kg / kmg1 320 lbs (M); Height 6 ft. 3 in. (190.50 cm) (R); Pain 10/10; 06:35 BP 120 / 66; Pulse 81; Resp 18; Temp 97.7(TE); Pulse Ox 98% on R/A; Pain 5/10; wisam 08:18 BP 130 / 67; Pulse 60; Resp 16; Temp 98.1; jmk 02:45 Body Mass Index 40.00 (145.15 kg, 190.50 cm) kmg1 MDM: 03:04 Undress patient appropriately for examination ordered. kmg1 03:04 IV Saline Lock ordered. kmg1 03:05 Amylase Ordered. EDMS 03:05 Basic Metabolic Profile Ordered. EDMS 03:05 CBC with Diff Ordered. EDMS 03:05 Lipase Ordered. EDMS 03:05 Liver Profile Ordered. EDMS 03:05 NOTHING BY MOUTH+DIET ordered. EDMS 03:58 Financial registration complete. [facility] 04:02 Basic Metabolic Profile Reviewed. cs11 04:02 CBC with Diff Reviewed. cs11 04:02 Amylase Reviewed. cs11 04:02 Lipase Reviewed. cs11 04:02 Liver Profile Reviewed. cs11 04:06 Ultrasound Abd Limited Ordered. EDMS 04:08 [facility] Payment Agreement was scanned into [employer] and attached to record. [facility] 04:38 CT ABD & PELVIS: IV Contrast Only Ordered. EDMS 06:04 Ultrasound Abd Limited Reviewed. cs11 06:08 BED REQUEST+ADM ordered. EDMS 06:17 Admission Orders was scanned into [employer] and attached to record. ml3 08:01 Admission / Observation Status ordered. EDMS 08:01 NPO DIET ordered. EDMS 08:17 LR Solution 1000 ml IV at 125 mL/hr continuous ordered. k 14:14 T-Sheet-- Draft Copy was scanned into [employer] and attached to record. gb Administered Medications: 08:17 Drug: LR 1000 ml [lactated ringers intravenous solution] Route: IV; Rate: 125 mL/hr; nate Site: left antecubital; Signatures: Dispatcher [employer] EDID Cristine Hagan, RN RN km Ciro BraggRN RN elizabethk Stefanie Acosta, Reg Reg gb Tameka Mathis, Professor Of Anthropology Unit ml3 Bud Piña, DO DO cs11 Kelly Rush Karla Horowitz, RN RN lmg The chart was reviewed and I authenticate all verbal orders and agree with the evaluation and treatment provided.Attachments: 04:08 [facility] Payment Agreement [facility] 06:17 Admission Orders 3 14:14 T-Sheet-- Draft Copy gb Chart Complete MTDD
--- NOTE | 2016-03-27 09:20 | EDDOCDS ---
Nurse's Notes [facility] Name: Magdi Perez Age: 30 yrs Sex: Male : 1985 Arrival Date: 03/25/2016 Time: 02:40 Bed 5 Private MD: Diagnosis: Acute cholecystitis Presentation: 03/25 02:42 Presenting complaint: Patient states: Severe right upper abdominal pain began at 2330. kmg1 Vomiting. Risk factors: the patient reports not having a history of previous torsion. Adult Sepsis Screening:. Suicide/Homicide risk assessment- the patient denies having any suicidal and/or homicidal ideations and does not present with any other emotional, behavioral or mental health complaints. 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 Transition of care: patient was not received from another setting of care. 02:42 Acuity: LEX Level 3 kmg1 02:42 Method Of Arrival: Walkin/Carried/Asstd kmg1 05:03 Adult Sepsis Screening: The patient does not have new or worsening altered mentation. js15 Patient's respiratory rate is less than 22. Systolic blood pressure is greater than 100. Patient has a qSOFA score of 0- Negative Sepsis Screen. Triage Assessment: 02:45 General: Appears uncomfortable, Behavior is appropriate for age, cooperative, restless. kmg1 Pain: Location: right upper quadrant Pain currently is 10 out of 10 on a pain scale. Quality of pain is described as aching, sharp, Pain began suddenly 3 hours ago. HIV screening NA for this visit Offered previously. GI: Reports upper abd pain, nausea, vomiting. Historical: - Allergies: No known drug Allergies; - Home Meds: 1. none - PMHx: none; - PSHx: Appendectomy; - Social history: Smoking status: Patient states was never smoker of tobacco. No barriers to communication noted, The patient speaks fluent Divehi, Speaks appropriately for age. - Family history: Not pertinent. - : The pt / caregiver states he / she is not on anticoagulants. Home medication list is obtained from the patient. - Exposure Risk Screening:: None identified. Screenin:04 Screening information is obtained from the patient. Fall risk: No risks identified. js15 Assistance ADL's: requires no assistance with activities of daily living. Abuse/DV Screen: The patient / caregiver reports he/she is: not in a situation that causes fear, pain or injury. Nutritional screening: No deficits noted. Advance Directives: There is no active DNR order. home support is adequate. Assessment: 04:00 General: Appears in no apparent distress, uncomfortable, Behavior is appropriate for js15 age, cooperative. Pain: Location: abdomen and right upper quadrant Pain currently is 7 out of 10 on a pain scale. Quality of pain is described as aching. Neurological: Level of Consciousness is awake, alert, obeys commands, Oriented to person, place, time. Respiratory: Airway is patent Respiratory effort is even, unlabored, Respiratory pattern is regular, symmetrical, Breath sounds are clear bilaterally. GI: Abdomen is non- distended Bowel sounds present X 4 quads. Abd is soft and non tender X 4 quads. Derm: Skin is pink, warm & dry. 05:04 Reassessment: Patient appears in no apparent distress at this time. Pt back from CT; js15 respirations even and unlabored; skin pink, warm, dry; resting comfortably on stretcher with significant other at bedside and lights dimmed. 06:06 Reassessment: Patient appears in no apparent distress at this time. Pt resting on js15 stretcher with eyes closed, lights off, appears to be sleeping; respirations even and unlabored; skin pink, warm, dry. 06:32 General: Appears in no apparent distress, resting on stretcher with eyes closed. js15 Respiratory: Airway is patent Respiratory effort is even, unlabored, Respiratory pattern is regular, symmetrical. Derm: Skin is pink, warm & dry. 08:12 General: Appears denies pain. Obese abdomen that is non distended with bowel sounds jmk present x 4. pain not reproduced with palpation of abdomen, but indicates discomfort to right upper abdomen when present. SL intact. moist pin k oral mucosa. Vital Signs: 02:45 BP 160 / 98; Pulse 59; Resp 18; Temp 96.2(O); Pulse Ox 97% on R/A; Weight 145.15 kg kmg1 (M); Height 6 ft. 3 in. (190.50 cm) (R); Pain 10/10; 06:35 BP 120 / 66; Pulse 81; Resp 18; Temp 97.7(TE); Pulse Ox 98% on R/A; Pain 5/10; wisam 08:18 BP 130 / 67; Pulse 60; Resp 16; Temp 98.1; jmk 02:45 Body Mass Index 40.00 (145.15 kg, 190.50 cm) [facility] [place] Vitals: 02:45 Log In Time: March 25, 2016 at 02:40. [facility] [place] ED Course: 02:41 Patient visited by Santi Aburto Reg. pm4 02:41 Patient moved to Waiting pm4 02:44 Triage Initiated km 03:05 Patient moved to 5 ml3 03:10 The patient / caregiver is instructed regarding the plan of care and ED course. kmg1 03:10 Amylase Sent. kmg1 03:10 Basic Metabolic Profile Sent. kmg1 03:10 CBC with Diff Sent. kmg1 03:10 Lipase Sent. kmg1 03:10 Liver Profile Sent. kmg1 03:10 Inserted saline lock: 20 gauge in left antecubital area. Labs drawn. (by ED staff). kmg1 Sent per order to lab. 03:46 Bud Piña DO is Attending Physician. cs11 03:46 Patient visited by Bud Piña DO. cs11 04:08 Patient name changed from Magdi\S\J\S\Cavellier\S\ to Magdi\S\Jerry\S\Cavellier. EDMS 04:08 [facility] Payment Agreement was scanned into [employer] and attached to record. [facility] 04:48 Patient visited by Natividad Armando RN. js15 05:03 Ultrasound Abd Limited Returned. EDMS 06:05 Patient visited by Natividad Armando RN. js15 06:09 CT ABD & PELVIS: IV Contrast Only Returned. EDMS 06:13 Aleksandr Hanson DO is Hospitalizing Provider. cs11 06:17 Admission Orders was scanned into [employer] and attached to record. ml3 06:35 Patient visited by Angie Vela PCA. wisam 07:59 Patient visited by Angel Mariee. jml1 07:59 Verbal reassurance given. jml1 14:14 T-Sheet-- Draft Copy was scanned into [employer] and attached to record. gb Administered Medications: 08:17 Drug: LR 1000 ml [lactated ringers intravenous solution] Route: IV; Rate: 125 mL/hr; nate Site: left antecubital; Order Results: Lab Order: Amylase; SPEC'M 03/25/16 03:06 Test: AMYLASE; Value: 52; Range: 25-115; Units: U/L; Status: F Lab Order: Basic Metabolic Profile; 03/25/16 03:06 Test: GLUCOSE, FASTING; Value: 133; Range: 70-105; Abnormal: Above high normal; Units: MG/DL; Status: F Test: BLOOD UREA NITROGEN; Value: 18; Range: 7-18; Units: MG/DL; Status: F Test: CREATININE FOR GFR; Value: 1.17; Range: 0.70-1.30; Units: MG/DL; Status: F Test: GLOMERULAR FILTRATION RATE; Value: > 60.0; Range: >60; Status: F Test: SODIUM LEVEL; Value: 138; Range: 136-145; Units: MEQ/L; Status: F Test: POTASSIUM SERUM; Value: 3.7; Range: 3.5-5.1; Units: MEQ/L; Status: F Test: CHLORIDE LEVEL; Value: 103; Range: 98-107; Units: MEQ/L; Status: F Test: CARBON DIOXIDE LEVEL; Value: 24; Range: 21-32; Units: MEQ/L; Status: F Test: ANION GAP; Value: 11; Range: 8-16; Units: MEQ/L; Status: F Test: CALCIUM LEVEL; Value: 9.3; Range: 8.5-10.1; Units: MG/DL; Status: F Test Note: ; Units are mL/min/1.73 m2 Chronic Kidney Disease Staging per NKF: Stage I & II GFR >=60 Normal to Mildly Decreased Stage III GFR 30-59 Moderately Decreased Stage IV GFR 15-29 Severely Decreased Stage V GFR <15 Very Little GFR Left ESRD GFR <15 on AREA CAPTAIN Lab Order: CBC with Diff; 03/25/16 03:06 Test: WHITE BLOOD COUNT; Value: 12.0; Range: 4.0-10.0; Abnormal: Above high normal; Units: K/mm3; Status: F Test: RED BLOOD COUNT; Value: 5.15; Range: 4.30-6.10; Units: M/mm3; Status: F Test: HEMOGLOBIN; Value: 15.8; Range: 14.0-18.0; Units: g/dl; Status: F Test: HEMATOCRIT; Value: 44.9; Range: 42.0-52.0; Units: %; Status: F Test: MEAN CORPUSCULAR VOLUME; Value: 87.3; Range: 80.0-96.0; Units: fl; Status: F Test: MEAN CORPUSCULAR HEMOGLOBIN; Value: 30.7; Range: 27.0-33.0; Units: pg; Status: F Test: MEAN CORPUSCULAR HGB CONC; Value: 35.1; Range: 32.0-36.5; Units: g/dl; Status: F Test: RED CELL DISTRIBUTION WIDTH; Value: 12.6; Range: 11.5-14.5; Units: %; Status: F Test: PLATELET COUNT, AUTOMATED; Value: 386; Range: 150-450; Units: k/mm3; Status: F Test: NEUTROPHILS %; Value: 77.0; Range: 36.0-66.0; Abnormal: Above high normal; Units: %; Status: F Test: LYMPH %; Value: 16.4; Range: 24.0-44.0; Abnormal: Below low normal; Units: %; Status: F Test: MONO %; Value: 3.4; Range: 0.0-5.0; Units: %; Status: F Test: EOS %; Value: 2.0; Range: 0.0-3.0; Units: %; Status: F Test: BASO %; Value: 0.4; Range: 0.0-1.0; Units: %; Status: F Test: LARGE UNSTAINED CELL %; Value: 0.8; Range: 0.0-4.0; Units: %; Status: F Test: NEUTROPHILS #; Value: 9.2; Range: 1.8-7.7; Abnormal: Above high normal; Units: K/mm3; Status: F Test: LYMPH #; Value: 2.1; Range: 1.5-4.5; Units: K/mm3; Status: F Test: MONO #; Value: 0.4; Range: 0.0-0.8; Units: K/mm3; Status: F Test: EOS #; Value: 0.2; Range: 0.0-0.50; Units: K/mm3; Status: F Test: BASO #; Value: 0.0; Range: 0.0-0.2; Units: K/mm3; Status: F Test: LARGE UNSTAINED CELL #; Value: 0.1; Range: 0.0-0.4; Units: K/mm3; Status: F Lab Order: Lipase; SPEC'M 03/25/16 03:06 Test: LIPASE; Value: 355; Range: 73-393; Units: U/L; Status: F Lab Order: Liver Profile; SPEC'M 03/25/16 03:06 Test: AST/SGOT; Value: 26; Range: 15-37; Units: U/L; Status: F Test: ALT/SGPT; Value: 60; Range: 12-78; Units: U/L; Status: F Test: ALKALINE PHOSPHATASE; Value: 55; Range: 45-117; Units: U/L; Status: F Test: BILIRUBIN,TOTAL; Value: 0.4; Range: 0.2-1.0; Units: MG/DL; Status: F Test: BILIRUBIN,DIRECT; Value: 0.1; Range: 0.0-0.2; Units: MG/DL; Status: F Test: TOTAL PROTEIN; Value: 8.1; Range: 6.4-8.2; Units: GM/DL; Status: F Test: ALBUMIN; Value: 4.5; Range: 3.2-5.2; Units: GM/DL; Status: F Test: ALBUMIN/GLOBULIN RATIO; Value: 1.25; Range: 1.00-1.93; Status: F Radiology Order: Ultrasound Abd Limited Test: Ultrasound Abd Limited REASON FOR EXAMINATION: Biliary Colic; ; CLINICAL HISTORY: Elevated liver enzymes.; TECHNIQUE: Realtime sonographic images were obtained in multiple projections.; COMMENTS:; Increased hepatic echogenicity suggestive of fatty infiltration.; Distended gallbladder.; Stones and sludge. One of the stones is impacted in the neck of the gallbladder.; Normal gallbladder wall thickness measuring 2.1 mm.; Positive sonographic Perry.; Nondilated common bile duct measuring 5.2 mm.; Unremarkable right kidney.; IMPRESSION:; Fatty liver.; Cholelithiasis.; One of the stones is impacted at the neck of the distended gallbladder.; Posterior sonographic Perry.; Suspected developing changes of acute cholecystitis. This needs a surgical consultation.; Thank you for your kind referral of this patient.; ; Radiology Order: CT ABD & PELVIS: IV Contrast Only Test: CT ABD & PELVIS: IV Contrast Only REASON FOR EXAMINATION: Biliary Colic; ; CLINICAL HISTORY: Abdominal pain.; TECHNIQUE: Multiple axial, sagittal and coronal CT images were obtained through the abdomen and pelvi; s after administration of intravenous contrast material.; COMMENTS:; The liver is mildly enlarged with decreased attenuation without mass or defect. There is no intra or; extrahepatic biliary ductal dilatation. The spleen is normal. The gallbladder is mildly thickened. Th; ere is mild pericholecystic fat stranding and thickening. The pancreas is of normal contour and atten; uation characteristics. There is no evidence of adrenal mass.; Both kidneys demonstrate prompt and equal nephrograms. The kidneys are normal in size, shape and conf; iguration. There is no evidence of renal or ureteral mass. No renal or ureteral calculi are identifie; d. There is no hydroureter or hydronephrosis.; No evidence for appendicitis. There is no bowel wall thickening. No evidence for small or large lilian; l obstruction. There is no evidence of abdominal ascites or lymphadenopathy.; There is no evidence of intrinsic or extrinsic bladder mass. There is no pelvic ascites or lymphadeno; mazin.; Images of the lung bases show no evidence of pleural or parenchymal mass. There are no pleural effusi; ons.; The bony structures are free of lytic or blastic lesions. Multilevel degenerative changes are seen in; volving the thoracolumbar spine. Scattered calcifications are seen involving the aorta and major bran; ches compatible with atherosclerosis.; IMPRESSION:; Suspected mild changes of acute cholecystitis. This needs a surgical consultation.; Mild hepatomegaly with fatty liver infiltration.; Thank you for your kind referral of this patient.; ; Outcome: 06:14 Decision to Hospitalize by Provider. cs11 08:18 Discharge Assessment: Patient awake, alert and oriented x 3. No cognitive and/or jmk functional deficits noted. Patient verbalized understanding of disposition instructions. patient administered narcotics - no. The following High Risk Discharge criteria are identified: None. Admitted to Med/Surg accompanied by tech, via stretcher, with chart. Condition: good. CT Study completed. Ultrasound Study completed. Property :Personal belongings accompany Pt. 08:19 Patient left the ED. nate Signatures: Dispatcher [employer] EDCristine Montgomery, RN RN kmg1 Ciro Bragg,RN RN elizabethk Stefanie Acosta, Reg Reg gb Tameka Mathis, Fiber Locking Supervisor Unit ml3 Angie Vela, BIOLOGICAL SCIENTIST BIOLOGICAL SCIENTIST Angel Rice jml1 Bud Piña DO DO cs11 Kelly Rush [facility] Natividad Armando,RN RN js15 Santi Aburto, Reg Reg pm4 Chart Complete MTDD
--- NOTE | 2016-03-27 09:20 | EDDOCDS ---
Physician Documentation [facility] Name: Magdi Perez Age: 30 yrs Sex: Male : 1985 Arrival Date: 03/25/2016 Time: 02:40 Bed 5 Private MD: Disposition: 03/25/16 06:14 Hospitalization ordered by Aleksandr Hanson for Inpatient Admission. Preliminary diagnosis is Acute cholecystitis. - Bed requested for 4 [place]. - Status is Inpatient Admission. jmk - Condition is Stable. - Problem is new. - Symptoms are unchanged. Historical: - Allergies: No known drug Allergies; - Home Meds: 1. none - PMHx: none; - PSHx: Appendectomy; - Social history: Smoking status: Patient states was never smoker of tobacco. No barriers to communication noted, The patient speaks fluent Guinean, Speaks appropriately for age. - Family history: Not pertinent. - : The pt / caregiver states he / she is not on anticoagulants. Home medication list is obtained from the patient. - Exposure Risk Screening:: None identified. Vital Signs: 03/25 02:45 BP 160 / 98; Pulse 59; Resp 18; Temp 96.2(O); Pulse Ox 97% on R/A; Weight 145.15 kg / kmg1 320 lbs (M); Height 6 ft. 3 in. (190.50 cm) (R); Pain 10/10; 06:35 BP 120 / 66; Pulse 81; Resp 18; Temp 97.7(TE); Pulse Ox 98% on R/A; Pain 5/10; wisam 08:18 BP 130 / 67; Pulse 60; Resp 16; Temp 98.1; jmk 02:45 Body Mass Index 40.00 (145.15 kg, 190.50 cm) kmg1 MDM: 03:04 Undress patient appropriately for examination ordered. kmg1 03:04 IV Saline Lock ordered. kmg1 03:05 Amylase Ordered. EDMS 03:05 Basic Metabolic Profile Ordered. EDMS 03:05 CBC with Diff Ordered. EDMS 03:05 Lipase Ordered. EDMS 03:05 Liver Profile Ordered. EDMS 03:05 NOTHING BY MOUTH+DIET ordered. EDMS 03:58 Financial registration complete. [facility] 04:02 Basic Metabolic Profile Reviewed. cs11 04:02 CBC with Diff Reviewed. cs11 04:02 Amylase Reviewed. cs11 04:02 Lipase Reviewed. cs11 04:02 Liver Profile Reviewed. cs11 04:06 Ultrasound Abd Limited Ordered. EDMS 04:08 [facility] Payment Agreement was scanned into [employer] and attached to record. [facility] 04:38 CT ABD & PELVIS: IV Contrast Only Ordered. EDMS 06:04 Ultrasound Abd Limited Reviewed. cs11 06:08 BED REQUEST+ADM ordered. EDMS 06:17 Admission Orders was scanned into [employer] and attached to record. ml3 08:01 Admission / Observation Status ordered. EDMS 08:01 NPO DIET ordered. EDMS 08:17 LR Solution 1000 ml IV at 125 mL/hr continuous ordered. k 14:14 T-Sheet-- Draft Copy was scanned into [employer] and attached to record. gb Administered Medications: 08:17 Drug: LR 1000 ml [lactated ringers intravenous solution] Route: IV; Rate: 125 mL/hr; nate Site: left antecubital; Signatures: Dispatcher [employer] EDCT Cristine Hagan, RN RN km Ciro BraggRN RN elizabethk Stefanie Acosta, Reg Reg gb Tameka Mathis, Aquaculture Worker Unit ml3 Bud Piña, DO DO cs11 Kelly Rush Karla Horowitz, RN RN lmg The chart was reviewed and I authenticate all verbal orders and agree with the evaluation and treatment provided.Attachments: 04:08 [facility] Payment Agreement [facility] 06:17 Admission Orders 3 14:14 T-Sheet-- Draft Copy gb Chart Complete MTDD
== END 2016-03-27 09:15 | disposition home or self-care (01) | DRG 263 ==
LOC: M ED 02:40 → M ED INP 06:15 → M MSPAV 08:46 → M MS5PR 14:51 → M PED 03-26 11:20 → OBSVTOIN 03-26 14:41
PROVIDERS: ADMIT Surgery; ATTEND Surgery
PROC: 0FT44ZZ Resection of Gallbladder, Percutaneous Endoscopic Approach (ICD-10-PCS; principal; 2016-03-26)
DX: K81.0 Acute cholecystitis (principal)

== ENCOUNTER → 2016-04-11 | Outpatient (CLI) | payer BC ==
[~2016-04-11] MED LIST: NORCOTAB PO; SENN1TAB2 PO
--- NOTE | 2016-04-16 09:40 | SLEEPHOME ---
DATE OF STUDY: 04/11/2016 ORDERING PROVIDER: Gary Sarkar PA-C Diagnostic home sleep testing was performed due to concern for the obstructive sleep apnea syndrome. For testing, a NOX-T3 respiratory monitoring device was used. Continuous record was made of pulse, oxygen saturation, airflow, chest and abdominal strain, and body position. 9 hours and 59 minutes of data were reviewed. Of these, 8 hours and 15 minutes were marked as time in bed. During the interval marked time in bed, there were 111 respiratory events identified of 10 seconds in duration or greater for a respiratory event index of 13.4. The events were more frequently obstructive, though some central and mixed apneas were seen. The patient's baseline heart rate was 67. Pulse rate ranged 41-104. Baseline saturation 91.5%. Lowest oxygen saturation 81%. Testing was performed in both the supine and nonsupine positions. IMPRESSION: Abnormal home sleep testing with repetitive respiratory events and oxygen desaturations to 81% with a respiratory event index of 13.4 is consistent with the obstructive sleep apnea syndrome. RECOMMENDATION: Given the significant oxygen desaturations, the patient should be referred for formal sleep evaluation and in-laboratory pressure titration.
== END ==
LOC: M SLEEP HO 07:35
PROVIDERS: ATTEND Physician Assistant
DX: R09.02 Hypoxemia (principal)

== ENCOUNTER → 2016-07-04 | Outpatient (CLI) | payer BC ==
--- NOTE | 2016-07-05 15:13 | REP ---
PA and lateral chest: Comparison is 07/03/2010. The central win are markedly enlarged as a distinct interval change compatible with adenopathy. Some diagnostic considerations are lymphoma and sarcoidosis. There are no infiltrates or effusions. No masses. Cardiac size normal. The win are as described. Mediastinum and bony thorax unremarkable. Impression: Markedly enlarged win bilaterally. Signed by Aleksandr Ramos MD 07/04/2016 05:09 P
== END ==
LOC: M ADAMS 16:51
PROVIDERS: ATTEND Physician Assistant
DX: R06.02 Shortness of breath (principal); R05 Cough; R91.8 Other nonspecific abnormal finding of lung field

== ENCOUNTER → 2016-07-05 | Outpatient (REF) | payer BC ==
[2016-07-05 18:40] LABS: ALBUMIN/GLOBULIN RATIO 1.18 (1.00-1.93); ALKALINE PHOSPHATASE 99 U/L (45-117); ALT/SGPT 59 U/L (12-78); ANION GAP 6 MEQ/L (8-16); AST/SGOT 26 U/L (15-37); BILIRUBIN,TOTAL 0.5 MG/DL (0.2-1.0); BLOOD UREA NITROGEN 20 MG/DL (7-18); CALCIUM LEVEL 9.4 MG/DL (8.5-10.1); CARBON DIOXIDE LEVEL 28 MEQ/L (21-32); CHLORIDE LEVEL 103 MEQ/L (98-107); CREATININE FOR GFR 1.32 MG/DL (0.70-1.30); GLOMERULAR FILTRATION RATE > 60.0 (>60); GLUCOSE, FASTING 111 MG/DL (70-105); POTASSIUM SERUM 4.5 MEQ/L (3.5-5.1); SODIUM LEVEL 137 MEQ/L (136-145); TOTAL PROTEIN 7.4 GM/DL (6.4-8.2)
[2016-07-05 19:54] LABS: BASO % 0.3 % (0.0-1.0); EOS % 0.7 % (0.0-3.0); LARGE UNSTAINED CELL % 0.6 % (0.0-4.0); MEAN CORPUSCULAR HEMOGLOBIN 31.3 pg (27.0-33.0); MEAN CORPUSCULAR HGB CONC 34.4 g/dl (32.0-36.5); MEAN CORPUSCULAR VOLUME 90.8 fl (80.0-96.0); MONO # 0.2 K/mm3 (0.0-0.8); MONO % 4.3 % (0.0-5.0); NEUTROPHILS # 4.3 K/mm3 (1.8-7.7); PLATELET COUNT, AUTOMATED 409 k/mm3 (150-450); RED CELL DISTRIBUTION WIDTH 12.1 % (11.5-14.5); WHITE BLOOD COUNT 5.7 K/mm3 (4.0-10.0)
== END ==
LOC: M LABDRAW1 17:08
PROVIDERS: ATTEND Family Medicine
DX: R91.8 Other nonspecific abnormal finding of lung field (principal); R59.0 Localized enlarged lymph nodes

== ENCOUNTER → 2016-07-08 | Outpatient (CLI) | payer BC ==
[2016-07-08 18:23] LABS: ANION GAP 8 MEQ/L (8-16); BLOOD UREA NITROGEN 17 MG/DL (7-18); CALCIUM LEVEL 8.6 MG/DL (8.5-10.1); CARBON DIOXIDE LEVEL 29 MEQ/L (21-32); CHLORIDE LEVEL 100 MEQ/L (98-107); CREATININE FOR GFR 1.16 MG/DL (0.70-1.30); GLOMERULAR FILTRATION RATE > 60.0 (>60); GLUCOSE, FASTING 99 MG/DL (70-105); POTASSIUM SERUM 4.4 MEQ/L (3.5-5.1); SODIUM LEVEL 137 MEQ/L (136-145)
== END ==
LOC: M SMT 15:02
PROVIDERS: ATTEND Physician Assistant
DX: N17.9 Acute kidney failure, unspecified (principal)

== ENCOUNTER → 2016-07-11 | Outpatient (CLI) | payer BC ==
--- NOTE | 2016-07-11 09:09 | REP ---
Chest x-ray: Two views. History: Cough. Bronchitis. Shortness of breath. Acute chest pain. Comparison chest x-ray July 04, 2016. Findings: There is evidence of moderate bilateral hilar and mild right mediastinal lymphadenopathy again noted essentially unchanged from July 04, 2016 prior chest x-ray. The lungs are symmetrically aerated. Pleural angles are sharp. Interstitial markings are prominent in the perihilar regions bilaterally. No new infiltrate is seen. No bony abnormality noted. Impression: Bilateral hilar and right mediastinal lymphadenopathy with perihilar prominent interstitial markings. Most likely differential possibility is sarcoidosis. Lymphoma and other etiologies of adenopathy must also be considered. The findings are unchanged when compared with the July 04, 2016 prior study. The findings are new when compared with the July 03, 2010 prior chest x-ray. Signed by Edgar Washington MD 07/11/2016 12:37 P
== END ==
LOC: M ADAMS 08:23
PROVIDERS: ATTEND Physician Assistant
DX: R05 Cough (principal); J20.9 Acute bronchitis, unspecified

== ENCOUNTER → 2016-07-16 | Outpatient (REF) | payer BC ==
[~2016-07-16] MED LIST changes: +PRED20TA PO; +no medications
[2016-07-16 17:56] LABS: INR 0.89
[2016-07-16 18:16] LABS: BASO % 0.3 % (0.0-1.0); EOS % 0.4 % (0.0-3.0); LARGE UNSTAINED CELL # 0.1 K/mm3 (0.0-0.4); LARGE UNSTAINED CELL % 1.1 % (0.0-4.0); LYMPH # 0.7 K/mm3 (1.5-4.5); MEAN CORPUSCULAR HEMOGLOBIN 31.1 pg (27.0-33.0); MEAN CORPUSCULAR HGB CONC 34.9 g/dl (32.0-36.5); MEAN CORPUSCULAR VOLUME 89.2 fl (80.0-96.0); MONO # 0.4 K/mm3 (0.0-0.8); MONO % 4.2 % (0.0-5.0); NEUTROPHILS # 7.9 K/mm3 (1.8-7.7); PLATELET COUNT, AUTOMATED 441 k/mm3 (150-450); RED CELL DISTRIBUTION WIDTH 12.4 % (11.5-14.5); WHITE BLOOD COUNT 9.1 K/mm3 (4.0-10.0)
[2016-07-16 18:37] LABS: ALBUMIN 3.9 GM/DL (3.2-5.2); ALBUMIN/GLOBULIN RATIO 0.98 (1.00-1.93); ALKALINE PHOSPHATASE 91 U/L (45-117); ALT/SGPT 221 U/L (12-78); AST/SGOT 68 U/L (15-37); BILIRUBIN,DIRECT 0.1 MG/DL (0.0-0.2); BILIRUBIN,TOTAL 0.4 MG/DL (0.2-1.0); CALCIUM LEVEL 9.5 MG/DL (8.5-10.1); CREATININE FOR GFR 1.04 MG/DL (0.70-1.30); GLOMERULAR FILTRATION RATE > 60.0 (>60); TOTAL PROTEIN 7.9 GM/DL (6.4-8.2)
[2016-07-16 19:51] LABS: ERYTHROCYTE SEDIMENTATION RATE 5 mm/hr (0-15)
[2016-07-23 00:06] LABS: AUREOBASIDIUM PULLULANS Negative (Negative); BLASTOMYCES ANTIBODY LEVEL Negative (Neg:<1:1); CRYPTOCOCCUS ANTIGEN SER Negative (Negative); HISTOPLASMOSIS ANTIBODY Negative (Neg:<1:1); MICROPOLYSPORA FAENI AB Negative (Negative); PIGEON SERUM AB Negative (Negative); SJOGREN'S ANTI SS-A <0.2 AI (0.0-0.9); SJOGREN'S ANTI SS-B <0.2 AI (0.0-0.9); THERMOACTINOMYCES SACCHARI Negative (Negative); THERMOACTINOMYCES VULGARIS Negative (Negative); VITAMIN D 1,25 DIHYDROXY 65.7 pg/mL (19.9-79.3)
[2016-07-24 06:21] LABS: COCCIDIOMYCOSIS ANTIBODY NEGATIVE
== END ==
LOC: M LAB REF 16:49
PROVIDERS: ATTEND Internal Medicine Pulmonary Disease
DX: R91.8 Other nonspecific abnormal finding of lung field (principal)

== ENCOUNTER → 2016-07-19 | Outpatient (CLI) | payer BC ==
[2016-07-19 11:12] LABS: ABG BASE EXCESS -0.9 (-2.0-2.0); ABG HCO3 22.4 MEQ/L (22.0-26.0); ABG PARTIAL PRESSURE CO2 33.3 mmHg (35.0-45.0); ABG PARTIAL PRESSURE O2 76.3 mmHg (75.0-100.0); ABG STANDARD HCO3 23.7 MEQ/L (22.0-26.0); ABG TOTAL CO2 23.4 MEQ/L (22.0-29.0); ABG pH (ARTERIAL) 7.445 UNITS (7.350-7.450)
--- NOTE | 2016-07-19 11:32 | ECGEPIP ---
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 No prior ECG available for comparison at the time of interpretation. Electronically Signed On 07-19-2016 11:31:57 EDT by Jakub Rodriguez
[2016-07-19 11:35] LABS: INR 0.93
[2016-07-19 11:49] LABS: MEAN CORPUSCULAR HEMOGLOBIN 30.9 pg (27.0-33.0); MEAN CORPUSCULAR HGB CONC 34.7 g/dl (32.0-36.5); MEAN CORPUSCULAR VOLUME 89.1 fl (80.0-96.0); RED CELL DISTRIBUTION WIDTH 12.2 % (11.5-14.5); WHITE BLOOD COUNT 6.2 K/mm3 (4.0-10.0)
--- NOTE | 2016-07-19 12:02 | REP ---
Chest two views HISTORY: Mediastinal lymphadenopathy Comparison: 07/11/2016 A minimal increase in interstitial markings is present in the lungs. The heart is normal in size. There is bilateral hilar adenopathy unchanged compared to the previous study. The pulmonary vasculature is normal in appearance. The bony structure is intact. IMPRESSION: Bilateral hilar adenopathy unchanged compared to the previous study. Signed by Alexis Gillette MD 07/19/2016 11:54 A
[2016-07-19 12:06] LABS: ANION GAP 6 MEQ/L (8-16); BLOOD UREA NITROGEN 18 MG/DL (7-18); CALCIUM LEVEL 8.5 MG/DL (8.5-10.1); CARBON DIOXIDE LEVEL 30 MEQ/L (21-32); CHLORIDE LEVEL 103 MEQ/L (98-107); GLOMERULAR FILTRATION RATE > 60.0 (>60); GLUCOSE, FASTING 71 MG/DL (70-105); POTASSIUM SERUM 4.8 MEQ/L (3.5-5.1); SODIUM LEVEL 139 MEQ/L (136-145)
== END ==
LOC: M LAB 10:39
PROVIDERS: ATTEND Thoracic Surgery (Cardiothoracic Vascular Surgery)
DX: R22.2 Localized swelling, mass and lump, trunk (principal)

== ENCOUNTER 2016-07-23 08:18 | Day surgery (SDC) | payer BC ==
[~2016-07-23] VITALS: Ht 188 cm; Wt 136.1 kg
[~2016-07-23 08:18] MED LIST changes: -PRED20TA PO
[2016-07-23] MEDS ORDERED: ceFAZolin SOD 1 GM in D5W MINI-BAG PLUS 50 ML IV ONE (08:30)
[2016-07-23] MEDS ORDERED: MUPIROCIN 2% OINT 22 GM TUBE TOP ONE (08:30)
[2016-07-23] MEDS ORDERED: fentaNYL 250 MCG/5 ML INJECTION (J3010) As Ordered ONE (09:45)
[2016-07-23] MEDS ORDERED: PROPOFOL 200 MG/20 ML VIAL As Ordered ONE (09:45)
[2016-07-23] MEDS ORDERED: SUCCINYLCHOLINE 100 MG/5 ML SYRINGE (J0330) As Ordered ONE (09:45)
[2016-07-23] MEDS ORDERED: LIDOCAINE 2% INJ 100 MG/5 ML SDV (FOR ANES.) As Ordered ONE (09:45)
[2016-07-23] MEDS ORDERED: MIDAZOLAM INJ 2 MG/2 ML VIAL (J2250) As Ordered ONE (09:45)
[2016-07-23] MEDS ORDERED: ROCURONIUM BROMIDE 50 MG/5 ML VIAL As Ordered ONE ×2 (09:45→13:12)
[2016-07-23] MEDS ORDERED: THROMBIN SOLN 20,000 UNITS KIT As Ordered ONE (10:16)
[2016-07-23] MEDS ORDERED: EPINEPHrine 1MG/10ML SYRINGE 1.5IN As Ordered ONE (10:18)
[2016-07-23] MEDS ORDERED: BUPIVACAINE LIPOSOME/PF 1.3% 20 ML VIAL (13.3MG/ML)(EXPAREL) As Ordered ONE (10:19)
[2016-07-23] MEDS ORDERED: CETACAINE SPRAY 20GM (FLOOR STOCK) As Ordered ONE (12:03)
[2016-07-23] MEDS ORDERED: ONDANSETRON 4MG/2ML VIAL (J2405) As Ordered ONE (13:24)
[2016-07-23] MEDS ORDERED: SUGAMMADEX SODIUM 500 MG/5 ML VIAL (BRIDION) As Ordered ONE (13:40)
[2016-07-23] MEDS: LR 1,000 ML IV SCH ×2 (13:58→18:30)
[2016-07-23] MEDS ORDERED: LR 1,000 ML IV SCH (14:30)
[2016-07-23] MEDS ORDERED: ONDANSETRON 4MG/2ML VIAL (J2405) IV PRN (14:30)
[2016-07-23] MEDS ORDERED: fentaNYL 100 MCG/2 ML INJECTION (J3010) IV PRN (14:30)
[2016-07-23] MEDS ORDERED: MEPERIDINE INJ 25 MG/ML VIAL (J2175) IV PRN (14:30)
[2016-07-23] MEDS ORDERED: METOCLOPRAMIDE INJ 10MG/2ML VIAL (J2765) IV PRN (14:30)
[2016-07-23] MEDS: PERCOCET 5MG/325MG TAB PO PRN ×2 (14:40→15:00)
[2016-07-23] MEDS ORDERED: fentaNYL 100 MCG/2 ML INJECTION (J3010) As Ordered ONE (14:45)
--- NOTE | 2016-07-23 17:04 | RO ---
DATE OF PROCEDURE: 07/23/2016 PREPROCEDURE DIAGNOSIS: Mediastinal lymphadenopathy. POSTPROCEDURE DIAGNOSIS: Non-necrotizing granulomas, probably sarcoid. PROCEDURE: Bronchoscopy and mediastinoscopy. SURGEON: Francisco Montgomery MD [employer]: ANESTHESIA: FINDINGS: Bronchoscopy revealed a widened main lyle. There are no endobronchial lesions. There were amounts of secretions. There is a normal branching tracheobronchial tree. Mediastinoscopy revealed very large soft lymph nodes which were copiously biopsied and sent for pathology, cultures frozen dissection, permanent dissetions. DESCRIPTION OF PROCEDURE: Under satisfactory general anesthesia, and a single lumen tube endotracheal intubation the bronchoscope was placed into the tracheobronchial tree with the above findings. There was a blunted main lyle with moderate secretions. There is no endobronchial lesions. Patient was then prepped and draped in the usual sterile fashion. And a midline suprasternal longitudinal incision was made. Incision was carried down to the subcutaneous tissue and the strap muscles were divided in the midline. Some large vertical veins were clipped and the pretracheal fascia was entered. Mediastinoscope was placed into the pretracheal fascia and the anterior mediastinum was dissected. There were numerous large nodes which were copiously biopsied after aspirating them. These were sent for the above. After achieving adequate hemostasis by use of electrocautery and Gelfoam and thrombin, the wound was closed with running #3-0 Vicryl suture for the strap muscles along the subcutaneous tissue and #4-0 Monocryl subcuticular suture for the skin. The patient tolerated the procedure well and left the operating room in satisfactory condition.
[2016-07-23 18:45] VITALS: BP 145/95
[2016-07-23 19:15] VITALS: BP 156/89
[2016-07-23 20:15] VITALS: BP 117/59
[2016-07-23 21:15] VITALS: BP 133/83
[2016-07-23 22:15] VITALS: BP 136/88
[2016-07-23 23:15] VITALS: BP 142/78
[2016-07-24] MEDS: LR 1,000 ML IV SCH (00:50)
[2016-07-24 03:15] VITALS: BP 149/84
[2016-07-24] MEDS: PERCOCET 5MG/325MG TAB PO PRN ×2 (04:56→09:38)
[2016-07-24 05:02] VITALS: O2SAT 98
[2016-07-24 07:15] VITALS: BP 136/70
[2016-07-24 10:00] VITALS: BP 174/95
[2016-07-24 11:30] VITALS: BP 125/75
[2016-07-24] MEDS ORDERED: PRED20TA PO (11:54)
== END 2016-07-24 13:00 | disposition home or self-care (01) ==
LOC: M SDC 08:18 → M MS5PR 18:45 → M SDC 07-24 13:00
PROVIDERS: ATTEND Thoracic Surgery (Cardiothoracic Vascular Surgery)
DX: I88.8 Other nonspecific lymphadenitis (principal); G47.33 Obstructive sleep apnea (adult) (pediatric); R63.4 Abnormal weight loss; R06.02 Shortness of breath; E66.9 Obesity, unspecified; R07.9 Chest pain, unspecified; R29.898 Other symptoms and signs involving the musculoskeletal system; R21 Rash and other nonspecific skin eruption; R51 Headache; R06.83 Snoring
CPT/HCPCS: 31622; 36415; 39402; 86850; 86900; 86901; 87070; 87075; 87102; 87116; 87206; 88305; 88312; J0330; J0690; J2250; J2405; J3010

== ENCOUNTER → 2016-08-01 | Outpatient (CLI) | payer BC ==
[~2016-08-01] MED LIST changes: +PRED20TA PO
--- NOTE | 2016-08-02 01:19 | REP ---
Clinical: Adenopathy. Technique: PA and lateral. Comparison: 07/19/2016, 07/11/2016. Findings: Marked bilateral hilar/mediastinal adenopathy is again identified. Lung herzog demonstrate diffuse chronic interstitial changes and possible perihilar/infrahilar atelectasis. No focal consolidation. No obvious effusion. No pneumothorax. Cardiac silhouette is normal. Skeletal structures are intact. Impression: Adenopathy and prominent interstitial markings with possible atelectasis. Differential diagnosis includes but is not limited to lymphoma as well as sarcoidosis and granulomatous disease. Signed by Enrico Linares MD 08/02/2016 01:11 A
== END ==
LOC: M SMT 09:38
PROVIDERS: ATTEND Thoracic Surgery (Cardiothoracic Vascular Surgery)
DX: R59.0 Localized enlarged lymph nodes (principal)

== ENCOUNTER → 2017-11-12 | Outpatient (CLI) | payer BC | LOC: M SMT 12:54 | DX: D86.2 Sarcoidosis of lung with sarcoidosis of lymph nodes (principal) | CPT/HCPCS: 71046 ==

== ENCOUNTER 2020-04-04 10:30 | Day surgery (SDC) | payer BC ==
[~2020-04-04] VITALS: Ht 190.5 cm; Wt 160.6 kg
[~2020-04-04 10:30] MED LIST changes: +HYDR-3715 PO; -NORCOTAB PO; +SENN-53 PO; -SENN1TAB2 PO
--- OUTSIDE RECORDS SUMMARY | 2020-04-04 10:35 | CCD ---
Author Author [facility] Organization [facility] Address Unknown Phone Unavailable Care Team Providers Care Estimator Binding Name Role Phone Antonina, Gary PA Unavailable Unavailable Antonina, Gary PA Unavailable Unavailable Antonina, Gary PA Unavailable Unavailable Antonina, Gary PA Unavailable Unavailable Antonina, Gary PA Unavailable Unavailable Antonina, Gary PA Unavailable Unavailable Antonina, Gary PA Unavailable Unavailable Antonina, Gary PA Unavailable Unavailable Antonina, Gary PA Unavailable Unavailable Antonina, Gary PA Unavailable Unavailable Antonina, Gary PA Unavailable Unavailable Antonina, Gary PA Unavailable Unavailable Antonina, Gary PA Unavailable Unavailable Antonina, Gary PA Unavailable Unavailable Antonina, Gary PA Unavailable Unavailable Antonina, Gary PA Unavailable Unavailable Antonina, Gary PA Unavailable Unavailable Antonina, Gary PA Unavailable Unavailable Antonina, Gary PA Unavailable Unavailable Antonina, Gary PA Unavailable Unavailable Antonina, Gary PA Unavailable Unavailable Antonina, Gary PA Unavailable Unavailable Antonina, Gary PA Unavailable Unavailable Antonina, Gary PA Unavailable Unavailable Antonina, Gary PA Unavailable Unavailable Antonina, Gary PA Unavailable Unavailable Antonina, Gary PA Unavailable Unavailable Antonina, Gary PA Unavailable Unavailable Antonina, Gary PA Unavailable Unavailable Antonina, Gary PA Unavailable Unavailable Antonina, Gary PA Unavailable Unavailable Antonina, Gary PA Unavailable Unavailable Antonina, Gary PA Unavailable Unavailable Antonina, Gary PA Unavailable Unavailable Antonina, Gary PA Unavailable Unavailable Antonina, Gary PA Unavailable Unavailable Antonina, Gary PA Unavailable Unavailable Antonina, Gary PA Unavailable Unavailable Antonina, Gary PA Unavailable Unavailable Antonina, Gary PA Unavailable Unavailable Antonina, Gary PA Unavailable Unavailable Antonina, Gary PA Unavailable Unavailable Antonina, Gary PA Unavailable Unavailable Antonina, Gary PA Unavailable Unavailable Antonina, Gary PA Unavailable Unavailable Antonina, Gary PA Unavailable Unavailable Antonina, Gary PA Unavailable Unavailable Antonina, Gary PA Unavailable Unavailable Antonina, Gary PA Unavailable Unavailable Re-disclosure Warning The records that you are about to access may contain information from federally-assisted alcohol or drug abuse programs. If such information is present, then the following federally mandated warning applies: This information has been disclosed to you from records protected by federal confidentiality rules (42 CFR part 2). The federal rules prohibit you from making any further disclosure of this information unless further disclosure is expressly permitted by the written consent of the person to whom it pertains or as otherwise permitted by 42 CFR part 2. A general authorization for the release of medical or other information is NOT sufficient for this purpose. The Federal rules restrict any use of the information to criminally investigate or prosecute any alcohol or drug abuse patient.The records that you are about to access may contain highly sensitive health information, the redisclosure of which is protected by Article 27-F of the [facility] Public Health law. If you continue you may have access to information: Regarding HIV / AIDS; Provided by facilities licensed or operated by the [facility] Office of Mental Health; or Provided by the [facility] Office for People With Developmental Disabilities. If such information is present, then the following [facility] mandated warning applies: This information has been disclosed to you from confidential records which are protected by state law. State law prohibits you from making any further disclosure of this information without the specific written consent of the person to whom it pertains, or as otherwise permitted by law. Any unauthorized further disclosure in violation of state law may result in a fine or senior living sentence or both. A general authorization for the release of medical or other information is NOT sufficient authorization for further disc losure. Family History Family Member Name Family Member Gender Family Member Status Date o f Status Description Data Source(s) Unknown Male Problem [facility] ([facility] Unknown Unknown Problem [facility] ([facility] Unknown Male Problem [facility] ([facility]) Unknown Male Problem [facility] ([facility] Encounters Encounter Providers Location Date Indications Data Source(s ) Outpatient Attender: Gary SIMS [facility] 01/04/2020 02:00:00 PM EST [facility] ([facility]) Insurance Providers Payer name Policy type / Coverage type Policy ID Covered green party ID Covered green party's relationship to kelsey Policy [place] Plan Information [employer] [id number] SP [id number] [place] [id number] SP [id number] EXCE[employer] BCBS B [id number] S [id number] [facility] Health Maintenance Organization (HMO) [id number] Self [id number] [place] PPO 302/307 [id number] SP [id number] BCBS Ppo Commercial [id number] Self [id number] SELF PAY O UNAVAILABLE S UNAVAILA BLE BC [place] FEDERAL B [id number] S [id number] [place] PPO 302/307 [id number] SP [id number] EXCELLUS C [id number] Self [id number] BCBS/[employer] Commercial [id number] Self [id number] [id number] [employer] [place] U/W Commercial [id number] Self [id number] BCBS/[employer] Commercial [id number] Self [id number] [id number] [employer] U/W Commercial [id number] Self [id number] [facility] Health Maintenance Organization (HMO) [id number] Self [id number] [facility] [id number] SP [id number] SELF PAY UNAVAILABLE SP UNAVAILA [facility] [id number] Surgeries/Procedures Procedure Description Date Indications Data Source(s) X-Ray Elbow Ap & Lateral 2 Views 03/31/2020 12:00:00 A M EST [facility] ([facility]) Results ID Date Data Source [id number] 04/03/2020 12:00:00 AM EST [facility] Bhupinder SIMS Patient Name: SAURABH RAMESH [id number] [facility] Date of : 1985[facility] [address] Date of Exam: 04/03/2020SYLWIA Yoo [id number]#: Fax: [phone] EXAM: MRI ELBOW RIGHT W/O CONTRASTCLINICAL INFORMATION: Elbow pain after strain four days ago pushing atrailer.TECHNIQUE:3T multiplanar MRI imaging of the right elbow was obtained using varioussequences.No prior pertinent study.FINDINGS:There is extensive edema in the antecubital fossa and surrounding thebiceps tendon insertion on the proximal radial tubercle. The tendon isabnormal with attenuation and partial tearing/retraction with abnormalsignal throughout the expected distal course of that tendon. Subcutaneousedema and fluid in the antecubital fossa extends proximally into the distalupper arm along that biceps course. The brachioradialis tendon appearsgrossly intact. The bone marrow of the distal humerus, proximal radius andulna were all grossly unremarkable. Trace amount of fluid in the elbowjoint. The common flexor and extensor tendon apparatus appears grosslyintact. I cannot see any definite ligament tear. The distal course of thetriceps tendon and its insertion were normal. The ulnar shows no bonebruise or fracture from its proximal course through olecranon. Likewise,the radial head is intact.IMPRESSION:1. Disruption of the distal biceps tendon with likely avulsion from itsbicipital tubercle on the proximal radius and with abnormal signal andfluid along its distal course extending proximally into the distal upperarm. Some fibers clearly torn and retracted.2. No bone bruise or fracture evident. The common extensor and flexortendons and the ligamentous complexes appear grossly intact.3. There is a very small joint effusion but no bone bruise or adjacentfractures.4. Triceps te ndon and its insertion normal. No other significant finding.Accredited by the [employer] in MR.Caleb Dunaway, STEVIEL/Doreen you for referring SAURABH RAMESH to our office. Electronically Signed - CALEB DUNAWAY MD 04/03/20 14:32 Name Value Range Interpretation Code Description Data Vijaya rce(s) Supporting Document(s) Procedure Social History Code Duration Value Status Description Data Source(s ) Smoking 01/04/2020 12:00:00 AM EST Patient has never smoked co mpleted Patient has never smoked [facility] ([facility]) Smoking 10/27/2019 12:00:00 AM EDT Non Smoker completed Non Smoke r [facility] ([facility], ) Vital Signs ID Date Data Source UNK Name Value Range Interpretation Code Description Data Source(s) Body temperature 97.7 [degF] 97.7 [degF] [facility] ([facility]) Body height 73.5 [in_i] 73.5 [in_i] [facility] ([facility]) 6'1.50" Body weight 340.50 [lb_av] 340.50 [lb_av] MEDEN T ([facility]) Body mass index (BMI) [Ratio] 44.3 kg/m2 44.3 k g/m2 [facility] ([facility]) [place] body weight 184 [lb_av] 184 [lb_av] [facility] T ([facility]) Oxygen saturation in Arterial blood by Pulse oximetry 97 % 97 % [facility] ([facility]) Body temperature 97.3 [degF] 97.3 [degF] [facility] ([facility]) Respiratory rate 20 /min 20 /min [facility] ( [facility]) Heart rate 88 /min 88 /min [facility] ([facility]) Body mass index (BMI) [Ratio] 47.3 kg/m2 47.3 k g/m2 [facility] ([facility]) Body weight 358.38 [lb_av] 358.38 [lb_av] [facility] ([facility]) Body height 73.0 [in_i] 73.0 [in_i] [facility] ([facility]) 6'1" Diastolic blood pressure 80 mm[Hg] 80 mm[Hg] [facility] ([facility]) Systolic blood pressure 118 mm[Hg] 118 mm[Hg] oRby [facility] ([facility]) Body weight 163.750 kg 163.750 kg [facility] ([facility], ) Body mass index (BMI) [Ratio] 46.3 kg/m2 46.3 k g/m2 [facility] ([facility]) Body weight 361.00 [lb_av] 361.00 [lb_av] [facility], [facility] Body height 74 [in_i] 74 [in_i] [facility] ([facility]) 6'2" Oxygen saturation in Arterial blood by Pulse oximetry 99 % 99 % [facility] ([facility], ) Room Air Heart rate 78 /min 78 /min [facility] ([facility], ) Diastolic blood pressure 90 mm[Hg] 90 mm[Hg] [facility] ([facility]) Systolic blood pressure 122 mm[Hg] 122 mm[Hg] [address] ([facility], )
[2020-04-04] MEDS ORDERED: ceFAZolin 1GM VIAL (J0690 PER 500MG) As Ordered ONE ×2 (11:01→12:26)
[2020-04-04] MEDS ORDERED: ceFAZolin 2 GM/D5W 50 ML IV BAG (J0690 PER 500MG) As Ordered ONE (11:01)
[2020-04-04] MEDS ORDERED: ceFAZolin SOD 2 GM in IV 1 EA IV ONE (11:15)
[2020-04-04] MEDS ORDERED: ceFAZolin SOD 1 GM in D5W MINI-BAG PLUS 50 ML IV ONE (11:15)
[2020-04-04] MEDS ORDERED: ONDANSETRON 4MG/2ML VIAL As Ordered ONE (11:58)
[2020-04-04] MEDS ORDERED: dexameTHASONE 4 MG/ML 1ML VIAL (J1100 PER 1MG) As Ordered ONE (11:58)
[2020-04-04] MEDS ORDERED: LIDOCAINE 2% 100MG/5ML SDV (FOR ANES.) As Ordered ONE (11:58)
[2020-04-04] MEDS ORDERED: propofoL 200 MG/20 ML VIAL As Ordered ONE (11:58)
[2020-04-04] MEDS ORDERED: ROCURONIUM BROMIDE 50 MG/5 ML VIAL As Ordered ONE ×2 (11:58→12:51)
[2020-04-04] MEDS ORDERED: SUGAMMADEX SODIUM 500 MG/5 ML VIAL (BRIDION) As Ordered ONE (11:58)
[2020-04-04] MEDS ORDERED: ACETAMINOPHEN 1000MG 100ML IV BTL (OFIRMEV) (J0131 PER 10MG) As Ordered ONE (11:58)
[2020-04-04] MEDS ORDERED: KETOROLAC 60MG 2ML VIAL As Ordered ONE (11:58)
[2020-04-04] MEDS ORDERED: fentaNYL 100 MCG/2 ML INJECTION (J3010) As Ordered ONE ×3 (11:59→14:21)
[2020-04-04] MEDS ORDERED: MIDAZOLAM INJ 2MG/2ML VIAL (J2250 PER 1MG) As Ordered ONE (11:59)
[2020-04-04] MEDS ORDERED: oxyCODONE 5MG TAB As Ordered ONE (14:26)
[2020-04-04] MEDS ORDERED: LR 1,000 ML IV SCH ×2 (14:28→14:45)
[2020-04-04] MEDS ORDERED: ONDANSETRON 4MG/2ML VIAL IV PRN (14:28)
[2020-04-04] MEDS ORDERED: fentaNYL 100 MCG/2 ML INJECTION (J3010) IV PRN (14:28)
[2020-04-04] MEDS ORDERED: NORCO, ANEXSIA 5/325MG TABLET (HYDROcodone/ACETAMINOPHEN) PO PRN ×2 (14:30)
[2020-04-04] MEDS: oxyCODONE 5MG TAB PO PRN ×2 (14:30→15:15)
[2020-04-04] MEDS: HYDROMORPHONE HCL 0.5 MG/ 0.5 ML SYRINGE (J1170 PER 1) IV PRN ×3 (14:32→14:53)
[2020-04-04] MEDS ORDERED: MORPHINE 4 MG/ML 1ML VIAL/SYRINGE (J2270) IV PRN (14:45)
--- NOTE | 2020-04-04 16:36 | RO ---
OPERATIVE NOTE DATE OF OPERATION: 04/04/2020 PREOPERATIVE DIAGNOSIS: Right distal biceps tear. POSTOPERATIVE DIAGNOSIS: Right distal biceps tear. PROCEDURE: Right distal biceps repair using a biceps button by Arthrex. SURGEON: Nabor Streeter M.D. CAR PUSHER: Jon Borges PA-C ANESTHESIA: General endotracheal tube anesthetic. COMPLICATIONS: None. ESTIMATED BLOOD LOSS: 20 mL SPECIMENS: None. DESCRIPTION OF PROCEDURE: Antibiotics were given intravenously preoperatively with 3 gm of Kefzol. General endotracheal tube anesthetic was established. The tourniquet was placed on the right upper arm and not inflated. The right upper extremity was carefully prepped and draped in the usual sterile fashion. Then the arm was elevated and after appropriate timeout, the tourniquet was inflated to 250 mmHg for about an hour. We made a small transverse incision on the volar aspect of the proximal forearm approximately 4 cm distal to the elbow flexion crease, cheating medially to help avoid the lateral antebrachial cutaneous nerve. Superficial dissection was carried down to the fascia. Bovie cautery was used to coagulate the crossing small veins. We dissected down and identified the lacertus fibrosus and the lacertus fibrosus was then dissected down underneath and eventually we were able to identify the biceps muscle. However, the tendon was not fully torn and retracted. There were just a few fibers remaining. I could dissect down to the radial tuberosity. You could feel that the radial tuberosity itself was basically empty of any attachment of the distal biceps tendon but there were a few remaining fascial bands on the ulnar side of the tuberosity and I traced that back up and eventually was able to identify the biceps tendon and with just finger dissection, it released completely off the radial tuberosity. This was then brought onto the wound and debrided the end and then whipstitched it with the FiberLoop suture. We then exposed the radial tuberosity very carefully using Army-[place] retractors. We did not use any Hohmann retractors, taking great care to not deviate off the bone to protect the posterior interosseous nerve. Once we had good exposure of the radial tuberosity, a dickey elevator was used to subperiosteally dissect the remaining tissue away so we could identify the tuberosity and we used a spade-tip drill and placed it into the radial tuberosity. The spade-tip drill was placed and one cortex into the radial tuberosity and then confirmed with fluoroscopic image in the AP and lateral planes that were right in the center of the radial tuberosity. Thus, I drilled the spade-tip across the far cortex and then used an 8 mm reamer to ream just the near cortex. The biceps button was then loaded on the sutures and then passed through the far cortex and then fluoroscopic imaging once again in the AP and lateral planes confirmed that the biceps button was flipped across the far cortex. I then brought the tendon down onto the biceps button into the 8 mm hole and secured it with an arthroscopic knot-tying device, then backed it up by passing one limb of the suture through the tendon with a free needle and sutured it back onto itself. This provided a nice, secure repair. He had full extension and I was able to pronate and supinate the arm with the arm extended and the tendon was in nice tension. I copiously irrigated several times throughout the operation, then did it again at the conclusion. The tourniquet was released. A 3-0 PDS was used to close the deep subdermal tissues. Then we closed the skin with a 4-0 subcuticular Monocryl, covered with Steri-Strips and Mastisol. Dry sterile bulky dressing applied. He was placed into a sling. The tourniquet was released prior to beginning of wound closure. He was awakened from general endotracheal tube anesthesia after having tolerated the procedure well and transferred to the recovery room in stable condition. There were no intraoperative complications. Mr. Jon Borges was critical to the success of this difficult operation on a 345 lb male with a very large arm with a BMI well over 40. He helped with appropriate soft tissue retraction, helped to close the wound, helped to repair the patient, helped me to pass sutures amongst many other tasks to allow me perform the operation smooth, efficiently and safely.
[2020-04-04 17:30] VITALS: BP 137/83
--- NOTE | 2020-04-05 08:05 | REP ---
INDICATION: R DISTAL BICEPS. COMPARISON: None. TECHNIQUE: Seven views. 4.6 seconds of fluoroscopy time is reported. FINDINGS: A sequence of 7 last image hold fluoroscopically obtained spot radiographs of the right elbow document operative manipulation biceps tendon repair. IMPRESSION: Procedural imaging. <Electronically signed by Zander Washington > 04/05/20 [id number]
== END 2020-04-04 17:30 | disposition home or self-care (01) ==
LOC: M SDC 10:30
PROVIDERS: ATTEND Orthopaedic Surgery
DX: S46.211A Strain of muscle, fascia and tendon of other parts of biceps, right arm, initial encounter (principal); E66.9 Obesity, unspecified; G47.33 Obstructive sleep apnea (adult) (pediatric); R51.9 Headache, unspecified; D86.0 Sarcoidosis of lung; X58.XXXA Exposure to other specified factors, initial encounter; Y93.9 Activity, unspecified; Y92.9 Unspecified place or not applicable; Y99.9 Unspecified external cause status; Z11.52 Encounter for screening for COVID-19
CPT/HCPCS: 24342; 76000; C1713; J0131; J0690; J1100; J1170; J1885; J2250; J2405; J3010; U0002